=== PATIENT | female | born 1960 | race Caucasian/White ===

== ENCOUNTER 2016-12-31 11:14 | Day surgery (SDC) | payer BC ==
[~2016-12-31 11:14] MED LIST: CIPROFLOXACIN HCL 500 MG TABLET PO PRN
[2016-12-31 13:21] VITALS: BP 121/74
[2016-12-31 13:39] LABS: Urine Bilirubin Negative (NEGATIVE); Urine Blood Negative /ul (NEGATIVE); Urine Ketone Negative (NEGATIVE); Urine Nitrite Negative (NEGATIVE); Urine Protein Negative (NEGATIVE); Urine Specific Gravity <=1.005 SP.GR. (1.005-1.010); Urine Urobilinogen Normal (NORMAL)
[2016-12-31 13:51] LABS: Urine Appearance Clear; Urine Bacteria None Seen; Urine Color Colorless; Urine RBC None Seen /hpf (0-5); Urine WBC None Seen /hpf (0-5)
== END 2016-12-31 11:15 | disposition home or self-care (01) ==
LOC: AMB 11:14
PROVIDERS: ATTEND Urology
PROC: 3E1K88X Irrigation of Genitourinary Tract using Irrigating Substance, Via Natural or Artificial Opening Endoscopic, Diagnostic (ICD-10-PCS; 2016-12-31)
PROC: 0TJB8ZZ Inspection of Bladder, Via Natural or Artificial Opening Endoscopic (ICD-10-PCS; principal; 2016-12-31 12:00)
DX: N36.8 Other specified disorders of urethra (principal); R31.29 Other microscopic hematuria; Z68.25 Body mass index [BMI] 25.0-25.9, adult